=== PATIENT | male | born 1960 | race Native Hawaiian/Other Pacific Islander ===

== ENCOUNTER 2017-06-09 12:13 | Emergency (ER) | payer BC ==
[~2017-06-09] VITALS: Ht 185.4 cm; Wt 93.4 kg
[~2017-06-09 12:13] MED LIST: CARDURA4 MG PO; PRADAXA150 MG PO
[2017-06-09 12:15] VITALS: TEMP 98
[2017-06-09 12:35] LABS: PLATELET COUNT 176 K/uL (142-355)
[2017-06-09 12:46] LABS: POTASSIUM 3.8 mmol/L (3.6-5.2); SODIUM 137 mmol/L (136-145)
[2017-06-09 13:31] LABS: PARTIAL THROMBOPLASTIN TIME 26.6 SECONDS (24.5-33.6)
[2017-06-09 15:28] VITALS: BP 112/80
== END 2017-06-09 15:30 | disposition short-term general hospital (02) ==
LOC: ED 12:13
DX: R07.89 Other chest pain (principal); I48.91 Unspecified atrial fibrillation
CPT/HCPCS: 36415; 80053; 82550; 84484; 85027; 85610; 85730; 93005; 96374; 96376; 99284; J2270

== ENCOUNTER 2017-06-09 15:37 | Outpatient (CLI) | payer BC | END 2017-06-09 16:52 | disposition short-term general hospital (02) | LOC: AMB 15:37 | DX: R07.89 Other chest pain (principal); I48.91 Unspecified atrial fibrillation | CPT/HCPCS: A0425; A0427 ==

== ENCOUNTER 2017-12-14 11:15 | Emergency (ER) | payer BC ==
[~2017-12-14] VITALS: Ht 182.9 cm; Wt 95.3 kg
[2017-12-14 12:38] VITALS: BP 112/74; TEMP 97.9
== END 2017-12-14 12:42 | disposition home or self-care (01) ==
LOC: ED 11:15
PROC: 0HQFXZZ Repair Right Hand Skin, External Approach (ICD-10-PCS; principal; 2017-12-14)
PROC: 2W3GX1Z Immobilization of Right Thumb using Splint (ICD-10-PCS; 2017-12-14)
PROC: 0H9FXZZ Drainage of Right Hand Skin, External Approach (ICD-10-PCS; 2017-12-14)
DX: S61.011A Laceration without foreign body of right thumb without damage to nail, initial encounter (principal); W31.9XXA Contact with unspecified machinery, initial encounter
CPT/HCPCS: 90715; 96372; 99283

== ENCOUNTER 2019-05-18 18:30 | Emergency (ER) | payer BC ==
[~2019-05-18] VITALS: Ht 182.9 cm; Wt 95.3 kg
[2019-05-18 18:49] VITALS: TEMP 98.5
[2019-05-18 19:05] LABS: PLATELET COUNT 193 K/uL (142-355)
[2019-05-18 19:12] LABS: SODIUM 140 mmol/L (136-145)
[2019-05-18 19:39] LABS: PARTIAL THROMBOPLASTIN TIME 24.2 SECONDS (24.5-33.6)
[2019-05-18 21:25] VITALS: BP 114/87
== END 2019-05-18 21:30 | disposition still patient (30) ==
LOC: ED 18:30
PROVIDERS: Hospitalist
DX: R07.89 Other chest pain (principal); I48.20 Chronic atrial fibrillation, unspecified
CPT/HCPCS: 36415; 80053; 82550; 83880; 84484; 85027; 85379; 85610; 85730; 96374; 96375; 99284; J2060; J2405

== ENCOUNTER 2019-05-18 21:32 | Outpatient (CLI) | payer BC | END 2019-05-18 22:51 | disposition short-term general hospital (02) | LOC: AMB 21:32 | DX: R07.89 Other chest pain (principal); I48.91 Unspecified atrial fibrillation | CPT/HCPCS: A0425; A0427 ==

== ENCOUNTER 2019-05-27 02:25 | Emergency (ER) | payer BC ==
[~2019-05-27] VITALS: Ht 182.9 cm; Wt 97.5 kg
[2019-05-27 03:27] LABS: POTASSIUM 3.7 mmol/L (3.6-5.2); SODIUM 138 mmol/L (136-145)
[2019-05-27 04:21] LABS: PLATELET COUNT 193 K/uL (142-355)
[2019-05-27 04:50] VITALS: BP 113/66; TEMP 97.8
== END 2019-05-27 04:50 | disposition home or self-care (01) ==
LOC: ED 02:25
PROVIDERS: Emergency Medicine
DX: E86.0 Dehydration (principal); F41.9 Anxiety disorder, unspecified; Z98.890 Other specified postprocedural states; Z79.02 Long term (current) use of antithrombotics/antiplatelets
CPT/HCPCS: 36415; 80053; 83735; 84484; 85027; 93005; 99283

== ENCOUNTER 2020-11-03 07:36 | Emergency (ER) | payer BC ==
[~2020-11-03] VITALS: Ht 182.9 cm; Wt 95.3 kg
[2020-11-03 07:42] VITALS: TEMP 98.5
[2020-11-03] MEDS ORDERED: ELIQUIS5 MG PO (07:50)
[2020-11-03] MEDS ORDERED: LIPITOR40 MG PO (07:50)
[2020-11-03] MEDS ORDERED: DOXA2TAB PO (07:51)
[2020-11-03 08:25] LABS: PLATELET COUNT 205 K/uL (142-355)
[2020-11-03 08:31] LABS: SODIUM 140 mmol/L (136-145)
[2020-11-03 08:41] LABS: PARTIAL THROMBOPLASTIN TIME 28.1 SECONDS (24.5-33.6)
[2020-11-03 09:35] VITALS: BP 154/48
== END 2020-11-03 09:37 | disposition short-term general hospital (02) ==
LOC: ED 07:36
PROVIDERS: Family Medicine
DX: I63.9 Cerebral infarction, unspecified (principal); G83.24 Monoplegia of upper limb affecting left nondominant side; R29.810 Facial weakness; I48.91 Unspecified atrial fibrillation; Z11.52 Encounter for screening for COVID-19
CPT/HCPCS: 36415; 80053; 82550; 84484; 85027; 85610; 85730; 87635; 93005; 99284; U0003

== ENCOUNTER 2021-05-02 10:56 | Outpatient (CLI) | payer BC ==
[~2021-05-02 10:56] MED LIST changes: +DOXA2TAB PO; +ELIQUIS5 MG PO; +LIPITOR40 MG PO
[2021-05-02 11:17] LABS: PLATELET COUNT 228 K/uL (142-355)
[2021-05-02 11:39] LABS: POTASSIUM 4.1 mmol/L (3.6-5.2)
== END 2021-05-02 19:00 | disposition home or self-care (01) ==
LOC: LABW 10:56
PROVIDERS: ATTEND Internal Medicine
DX: I12.9 Hypertensive chronic kidney disease with stage 1 through stage 4 chronic kidney disease, or unspecified chronic kidney disease (principal); R97.20 Elevated prostate specific antigen [PSA]; N18.9 Chronic kidney disease, unspecified
CPT/HCPCS: 36415; 80053; 81000; 82043; 82570; 83735; 84100; 84153; 84155; 85027